=== PATIENT | female | born 2005 | race Two or more races ===

== ENCOUNTER 2023-04-09 14:39 | Inpatient (IN) | payer OTHER ==
[~2023-04-09] VITALS: Ht 165.1 cm; Wt 88.5 kg
[2023-04-09] MEDS ORDERED: MEPERIDINE HCL/PF 50 MG/ML VIAL IV ONE (17:15)
[2023-04-09] MEDS ORDERED: PROMETHAZINE HCL 50 MG/ML AMPUL IV ONE (17:15)
[2023-04-09 17:29] LABS: PH,URINE 6.5 (5.0-8.0); URINE APPEARANCE Cloudy; URINE BILIRRUBIN Negative (NEGATIVE); URINE BLOOD Negative; URINE COLOR Yellow; URINE GLUCOSE Negative (NEGATIVE); URINE LEUKOCYTE Negative; URINE NITRATE Negative; URINE PROTEIN Negative (NEGATIVE)
[2023-04-09 17:30] LABS: HEMATOCRIT 36.3 % (36.0-45.00); HEMOGLOBIN 12.2 g/dL (12.0-15.00); MEAN CELL VOLUME 76.4 fL (80.00-100.00); MEAN CORPUSCULAR HEMOGLOBIN 25.8 pg (27.00-32.0); MEAN CORPUSCULAR HGB CONC 33.7 g/dl (32.0-36.0); PLATELET COUNT 225 K/uL (150-450); RED BLOOD COUNT 4.75 M/uL (4.00-6.00); RED CELL DISTRIBUTION WIDTH 15.8 % (11.5-14.5)
[2023-04-09] MEDS ORDERED: PROMETHAZINE HCL 25 MG/ML AMPUL ONE (17:34)
[2023-04-09 17:35] LABS: URINE BACTERIA 2460.6 uL (0.0-1933); URINE EPITHELIAL CELLS 78.8 uL (0.0-38.8); URINE RBC 2.4 uL (0.0-20.8)
[2023-04-09] MEDS ORDERED: RINGERS SOLUTION,LACTATED 1,000 ML IV SCH (17:45)
[2023-04-09 17:47] LABS: INR < 0.93; PARTIAL THROMBOPLASTIN TIME 22.4 SECONDS (22.0-34.0); PROTHROMBIN TIME 9.8 SECONDS (9.0-11.5)
[2023-04-09] MEDS ORDERED: PRENATAL TABLE1 EAC1 PO (17:47)
[2023-04-09 17:48] LABS: ALBUMIN 3.2 gm/dL (3.4-5.0); BILIRUBIN TOTAL 0.31 mg/dL (0.3-1.2); CALCIUM 9.1 mg/dL (8.5-10.1); CREATININE SERUM 0.58 mg/dL (0.55-1.02); GFR 132.54; GLOBULINA 3.3 G/DL (2.4-3.5); POTASSIUM 3.97 mEq/L (3.5-5.1); TOTAL PROTEIN 6.5 gm/dL (6.4-8.2)
[2023-04-10] MEDS ORDERED: OXYTOCIN 10 UNITS/ML VIAL ONE (03:06)
[2023-04-10] MEDS ORDERED: ERYTHROMYCIN BASE 3.5 GM OINT...G. OP ONE (03:06)
[2023-04-10] MEDS ORDERED: CEFAZOLIN SODIUM 1,000 MG VIAL IV STA (03:58)
[2023-04-10] MEDS ORDERED: MEPERIDINE HCL/PF 50 MG/ML VIAL IV SCH (05:00)
[2023-04-10] MEDS ORDERED: PROMETHAZINE HCL 25 MG/ML AMPUL IV SCH (05:00)
[2023-04-10] MEDS ORDERED: KETOROLAC TROMETHAMINE 60 MG VIAL IM ONE (05:00)
[2023-04-10] MEDS ORDERED: OXYTOCIN 20 UNITS/1000ML RL PIGGYBAG IV ONE (06:00)
[2023-04-10] MEDS ORDERED: ERYTHROMYCIN BASE 1 GM TUBE OP ONE (06:00)
[2023-04-10 06:05] LABS: ABG PH 7.313 (7.35-7.45); ABG pCO2 44.8 mmHg (35-45); BICARBONATE 22.2 mmol/l (23-25); SaO2 19.4 %; Tco2 23.6 mmol/l; o2 21 %
[2023-04-10] MEDS ORDERED: SIMETHICONE 125 MG CAPSULE PO SCH (09:00)
[2023-04-10] MEDS ORDERED: DOCUSATE CALCIUM 240 MG CAPSULE PO SCH (09:00)
[2023-04-10 14:43] LABS: HEMATOCRIT 30.6 % (36.0-45.00); HEMOGLOBIN 10.4 g/dL (12.0-15.00); MEAN CELL VOLUME 76.1 fL (80.00-100.00); MEAN CORPUSCULAR HEMOGLOBIN 25.8 pg (27.00-32.0); MEAN CORPUSCULAR HGB CONC 33.9 g/dl (32.0-36.0); PLATELET COUNT 190 K/uL (150-450); RED BLOOD COUNT 4.02 M/uL (4.00-6.00); RED CELL DISTRIBUTION WIDTH 15.3 % (11.5-14.5)
[2023-04-10] MEDS ORDERED: OxyCODONE HCL/APAP UD (PERCOCET) PO SCH (21:00)
[2023-04-12] MEDS ORDERED: IBU800 MG PO (14:28)
[2023-04-12] MEDS ORDERED: SURFAK240 M1 PO (14:28)
== END 2023-04-12 14:40 | disposition home or self-care (01) | DRG 788 ==
LOC: OBS/DEL 14:39 → LDR 17:13 → OB/GYN 04-10 05:21
PROVIDERS: Student in an Organized Health Care Education/Training Program; ADMIT Specialist; ATTEND Specialist
PROC: 4A1HXCZ Monitoring of Products of Conception, Cardiac Rate, External Approach (ICD-10-PCS; 2023-04-09)
PROC: 10D00Z1 Extraction of Products of Conception, Low, Open Approach (ICD-10-PCS; principal; 2023-04-10 02:00)
DX: O62.1 Secondary uterine inertia (principal); O36.8130 Decreased fetal movements, third trimester, not applicable or unspecified; Z3A.39 39 weeks gestation of pregnancy; Z37.0 Single live birth; Z20.822 Contact with and (suspected) exposure to COVID-19